=== PATIENT | male | born 1950 | race American Indian/Alaskan Native ===

== ENCOUNTER 2016-08-26 23:02 | Emergency (ER) | payer SELFPAY ==
--- NOTE | 2016-08-26 23:54 | XRay Report ---
FINAL REPORT EXAM: XR ELBOW 3 LT HISTORY: PAIN COMPARISONS: None. FINDINGS: Three views left elbow No bone lesion, periosteal reaction, or fracture. No deformity or gross malalignment. IMPRESSION: No fracture or effusion involving the left elbow.
--- NOTE | 2016-08-27 03:34 | Emergency Department Report ---
ED Head Injury/Laceration HPI - HPI Mechanism: Fall Pain: Mild Tetanus Status: Not up to Date Symptoms: Loss of Consciousness: No, Nausea: No, Blurred Vision: No, Unusual Behavior: No, Headache: No, Swelling: No, Break in Skin: Yes, Bleeding: No Other History: 65-year-old male past medical history diabetes presents with complaint of pain to left elbow and small laceration above left brow. Patient states he was at work was pulling a piece of material material gave way and he fell backward and fell onto ground. Patient states he fell onto his left side. Denies any loss of consciousness. Patient is not on any blood thinners. Patient denies any blurry vision no headache no dizziness. States he has small laceration above left brow. Is awake alert and oriented 3 fully lucid and conversant ED General PMH - Social History Smoking Status: Never Smoker ED Review of Systems ROS: Stated complaint: FELL/LEFT EYE LAC Other details as noted in HPI Constitutional: denies: chills, fever Eyes: denies: eye pain, eye discharge, vision change ENT: denies: ear pain, throat pain Respiratory: denies: cough, shortness of breath, wheezing Cardiovascular: denies: chest pain, palpitations Endocrine: no symptoms reported Gastrointestinal: denies: abdominal pain, nausea, diarrhea Genitourinary: denies: urgency, dysuria Musculoskeletal: denies: back pain, joint swelling, arthralgia Skin: denies: rash, lesions Neurological: denies: headache, weakness, paresthesias Psychiatric: denies: anxiety, depression Hematological/Lymphatic: denies: easy bleeding, easy bruising Head Inj w/lac Physical Exam - Exam General: Vital signs noted. No distress. Alert and acting appropriately. Adult Head Front + Back: 1 - small horizontal 3 cm superficial abrasion/laceration here not deep on exam Head: Yes PERRL, No Hemotympanum, No Hematoma/Ecchymosis, No Epistaxis, No Stepoff/Deformity, No Abrasion, No Foreign Body Wound Length (cm): 2 Laceration Location: Facial Chest, Abd, & Ext: Yes Clear Lung Sounds, Yes Regular Heart Rhythm, No Neck Pain , No Chest Injury/Pain, No Heart Murmur, No Abdominal Tenderness, No Back Tenderness, No Extremity Injury Neuroligical (Head Inj W/O Lac: Yes Normal Speech, Yes Normal Gait, No Lethargy , No Disorientation, No Focal Numbness, No Focal Weakness - Laceration /Wound Repair Left Face Wound Location: head Wound Length (cm): 2 Wound's Depth, Shape: superficial Wound Explored: clean Irrigated w/ Saline (ccs): 100 Betadine Prep?: No Wound Repaired With: Steri-strips (4 strips), Dermabond Sterile Dressing Applied?: No Progress: Closure achieved with Steri-Strips and Dermabond ED Critical Care Note - Critical Care Note Comments: A/P: Left brow abrasion/superficial laceration, left elbow sprain 1-patient is awake alert and oriented 3 does not meet [facility] or [facility] rules 2-tetanus update 3-abrasion closed with Dermabond and Steri-Strips 4-Tylenol when necessary for pain 5- x-ray elbow shows no fracture on the arm neurologically and vascularly intact ED Disposition Clinical Impression: Facial abrasion Qualifiers: Encounter type: initial encounter Qualified Code(s): S00.81XA - Abrasion of other part of head, initial encounter Sprain of elbow, left Qualifiers: Encounter type: initial encounter Qualified Code(s): S53.402A - Unspecified sprain of left elbow, initial encounter Disposition: TO HOME OR SELFCARE Is pt being admited?: No Does the pt Need Aspirin: No Condition: Stable Instructions: Elbow Sprain (ED), Abrasion (ED), RICE Therapy (ED) Prescriptions: Acetaminophen [Acetaminophen TAB] 500 mg PO Q6HR PRN #25 tablet PRN Reason: Pain Referrals: [facility] MD [Staff Physician] - 3-5 Days [facility] [Provider Group] - 3-5 Days Forms: Work/School Release Form(ED) Time of Disposition: 03:36
[2016-08-27] MEDS ORDERED: BOOSTRIX IM ONE (03:36)
[2016-08-27 03:57] VITALS: BP 130/78
== END 2016-08-27 03:52 | disposition home or self-care (01) ==
LOC: ED 23:02
DX: S01.112A Laceration without foreign body of left eyelid and periocular area, initial encounter (principal); S53.402A Unspecified sprain of left elbow, initial encounter; W18.39XA Other fall on same level, initial encounter; Y93.89 Activity, other specified; Y92.89 Other specified places as the place of occurrence of the external cause; Y99.8 Other external cause status
CPT/HCPCS: 90471; 90715; 99283